=== PATIENT | male | born 1970 | race Caucasian/White ===

== ENCOUNTER → 2022-02-06 | Outpatient (CLI) | payer OTHER ==
[~2022-02-06] MED LIST: ACTOS15 MG PO; ALBUTEROL2.5 MG/3 M INH; COLACE100 MG PO; HYDROCODONE-AC1 EAC1 PO; LISINOPRIL10 MG PO; NEURONTIN600 MG PO; PROAIR HFA8.5 GM INH; TESTOSTERO200 MG/1 M INJ; TRULICITY1.5 MG/0.5 INJ; VITAMIN D31250 MCG PO; ZANAFLEX4 MG PO
[2022-02-06 11:26] LABS: HEMOGLOBIN 15.5 gm/dl (14.0-17.5); RED BLOOD COUNT 4.79 M/UL (4.20-5.50); WHITE BLOOD COUNT 10.6 K/UL (4.5-11.0)
[2022-02-06 11:47] LABS: BUN/CREATININE RATIO 16 (0-10)
== END ==
LOC: OPSV2 10:00
PROVIDERS: Orthopaedic Surgery
DX: Z01.818 Encounter for other preprocedural examination (principal); S83.241A Other tear of medial meniscus, current injury, right knee, initial encounter
CPT/HCPCS: 36415; 80048; 85025; 93005

== ENCOUNTER → 2022-02-15 | Day surgery (SDC) | payer OTHER ==
[~2022-02-15] MED LIST changes: +HYDROCODON-ACE1 EAC6 PO
== END | disposition home or self-care (01) ==
LOC: OR 07:30
DX: S83.241A Other tear of medial meniscus, current injury, right knee, initial encounter (principal); M22.41 Chondromalacia patellae, right knee; E11.9 Type 2 diabetes mellitus without complications; I10 Essential (primary) hypertension; Z91.048 Other nonmedicinal substance allergy status; Z91.013 Allergy to seafood; Z79.84 Long term (current) use of oral hypoglycemic drugs; X50.1XXA Overexertion from prolonged static or awkward postures, initial encounter
CPT/HCPCS: 82962; J0171; J0690; J1170; J2001; J2405; J2704; J3010